=== PATIENT | male | born 1975 | race Two or more races ===

== ENCOUNTER 2023-03-09 10:07 | Emergency (ER) | payer OTHER ==
[~2023-03-09] VITALS: Ht 175.3 cm; Wt 83.0 kg
== END 2023-03-09 14:27 | disposition home or self-care (01) ==
LOC: ER 10:07
DX: S20.211A Contusion of right front wall of thorax, initial encounter (principal); W18.30XA Fall on same level, unspecified, initial encounter; Y93.9 Activity, unspecified; Y92.832 Beach as the place of occurrence of the external cause; Y99.9 Unspecified external cause status